=== PATIENT | male | born 1975 | race Caucasian/White ===

== ENCOUNTER → 2021-05-22 16:39 | Outpatient (CLI) | payer OTHER, SELFPAY ==
--- NOTE | ~2021-05-22 | MR_ITS ---
EXAMINATION: MR ankle RT wo con DATE: 05/22/2021 17:27 INDICATION: Peroneal tendinopathy. Plantar right ankle pain. TECHNIQUE: Magnetic resonance imaging (MRI) of the right ankle was performed without intravenous cont rast. Sequences included sagittal PD-weighted FS FSE, sagittal PD-weighted FSE, coronal PD-weighted F S FSE, coronal PD-weighted FSE, axial PD-weighted FS FSE, and axial PD-weighted FSE. COMPARISON: None. FINDINGS: Medial ankle ligaments: The superficial and deep components of the deltoid ligament are normal. Lateral ankle ligaments: There is an old avulsion fracture of anteroinferior tip of distal fibula at the attachment of the ant erior talofibular ligament. Anterior talofibular ligament demonstrates increased signal intensity, co nsistent with changes of old sprain. Calcaneofibular ligament is normal. There is a partial tear of p osterior talofibular ligament with 8 mm synovial cyst. The anterior tibiofibular ligament is indistin ct with increased signal intensity, consistent with changes of prior sprain. Posterior tibiofibular l igament is normal. Tendons: There is a longitudinal split tear of peroneus brevis tendon. There is mild peroneus longus tendinopa thy. The anterior and medial ankle tendons are normal. There is mild Achilles tendinopathy. Plantar fascia: There is thickening and increased signal in central band of plantar fascia. There is an enthesophyte at the calcaneal attachment with edema-like marrow signal intensity. Bones/other: Bone alignment is normal. The talar dome is normal. Fluid: There is no joint effusion. IMPRESSION: 1. Longitudinal split tear of peroneus brevis tendon. 2. Mild tendinopathy of peroneus longus tendon. 3. Old avulsion fracture of anteroinferior tip of distal fibula at the attachment of anterior talofib ular ligament. Changes of old lateral ankle sprain. 4. Plantar fasciitis. Reviewed, dictated and finalized at location A. [employer] IMPRESSION: 1. Longitudinal split tear of peroneus brevis tendon. 2. Mild tendinopathy of peroneus longus tendon. 3. Old avulsion fracture of anteroinferior tip of distal fibula at the attachme nt of anterior talofibular ligament. Changes of old lateral ankle sprain. 4. Plantar fasciitis.
== END ==
PROVIDERS: Visit Provider Podiatrist Foot & Ankle Surgery
DX: M76.71 Peroneal tendinitis, right leg (principal); M76.72 Peroneal tendinitis, left leg; M72.2 Plantar fascial fibromatosis
CPT/HCPCS: 73721

== ENCOUNTER 2022-05-22 08:09 | Emergency (ER) | payer OTHER, SELFPAY ==
--- NOTE | 2022-05-22 08:15 | ED.GENADULT ---
HPI - General Adult General Chief complaint: Upper Respiratory Infection Stated complaint: nasal congestion,headache Time Seen by Provider: 05/22/22 08:15 Source: patient Mode of arrival: ambulatory Limitations: no limitations History of Present Illness HPI narrative: 47-year-old male patient presents to the [facility] with complaints of nasal congestion, headache for the past 2-3 days. Patient states he has been taking [id number] Sudafed and Flonase but states that really has not helped much. Patient denies fevers, body aches or chills. Denies any coughing, chest pain or shortness of breath. Denies any abdominal pain, nausea, vomiting or diarrhea. Related Data Allergies Allergy/AdvReac Type Severity Reaction Status Date / Time No Known Allergies Allergy Verified 05/22/22 08:29 Review of Systems Review of Systems: CONSTITUTIONAL: Denies fever, chills, or sweats. EYES: Denies visual changes, redness, or discharge. ENT: Positiverhinorrhea, congestion, deniessore throat, or otalgia. CARDIOVASCULAR: Denies chest pain, palpitations, or edema. RESPIRATORY: Denies cough or dyspnea. GASTROINTESTINAL: Denies abdominal pain, nausea, vomiting, or diarrhea. GENITOURINARY: Denies dysuria or hematuria. SKIN: Denies rash or itching. MUSCULOSKELETAL: Denies back pain, joint pain, or myalgia. NEUROLOGIC: positive headache, denies numbness, or weakness. PSYCHIATRIC: Denies anxiety or depression. [facility] Past Medical History Medical History (Updated 05/22/22 @ 08:52 by HANNA Jorgensen) No significant past medical history Comments At the time of my signature I agree with nursing past medical history, surgical, social, and family history. There is no relevant family history pertinent to the presenting complaint. Exam Narrative: GENERAL: Well-appearing, well-nourished, and in no acute distress. HEAD: Normocephalic, atraumatic. slight tenderness noted to palpation of frontal sinuses EYES: PERRLA and EOMI. ENT: Nares clear, no rhinorrhea or epistaxis. Mucous membranes moist. posterior pharynx with no erythema, tonsillar edema, exudates or lesions present. NECK: Supple. No lymphadenopathy CHEST: Clear to auscultation. No respiratory distress. HEART: Regular rate and rhythm. No murmur heard. Normal peripheral pulses. ABDOMEN: Soft, nontender, nondistended, normal active bowel sounds. EXTREMITIES: Normal range of motion. No edema. SKIN: Warm, dry, no rash. NEURO: No focal deficits. Alert and oriented x3. Course Course Level of Care: Express Care Visit Vital Signs Vital signs: Vital Signs Temperature 36.8 C 05/22/22 08:27 Pulse Rate 85 05/22/22 08:27 Respiratory Rate 18 05/22/22 08:27 Blood Pressure 142/88 H 05/22/22 08:27 Pulse Oximetry 98 05/22/22 08:27 Oxygen Delivery Room Air 05/22/22 08:27 Temperature 36.8 C 05/22/22 08:27 Pulse Rate 85 05/22/22 08:27 Respiratory Rate 18 05/22/22 08:27 Blood Pressure 142/88 H 05/22/22 08:27 Pulse Oximetry 98 05/22/22 08:27 Oxygen Delivery Room Air 05/22/22 08:27 Vital signs reviewed. The patient has been informed that they may have pre-hypertension or Hypertension based on a BP reading in the department. I recommend that the patient call the primary care provider listed on their discharge instructions or a physician of their choice this week to arrange follow up for further evaluation of possible pre-hypertension or Hypertension Medical Decision Making MDM Narrative Medical decision making narrative: Discussed with patient that most likely he has sinusitis that is viral not bacterial. Discussed with patient we will discharge him home a 5 day course of an oral steroid and encouraged him to continue doing his Flonase as well as taking a 24 hour antihistamine such as Zyrtec, Jocelynn Claritin. Patient verbalized understanding denies any other questions or concerns at this time. Differential Diagnosis Differential Diagnosis: Diffe
[2022-05-22 08:27] VITALS: BP 142/88; PULSE 85; RESP 18; TEMP 36.8; O2SAT 98
== END 2022-05-22 08:50 | disposition home or self-care (01) ==
PROVIDERS: Emergency Provider Nurse Practitioner Family; PCP Physician Assistant
DX: J32.9 Chronic sinusitis, unspecified (principal)
CPT/HCPCS: 99213; G0463

== ENCOUNTER 2023-12-31 09:24 | Emergency (ER) | payer OTHER, SELFPAY ==
[2023-12-31 09:33] VITALS: BP 150/96; PULSE 76; RESP 19; TEMP 36.8; O2SAT 100
--- NOTE | 2023-12-31 09:33 | ED.GENADULT ---
HPI - General Adult General Chief complaint: Dizziness Stated complaint: Dizziness/High BP Time Seen by Provider: 12/31/23 10:07 Source: patient Mode of arrival: ambulatory Limitations: no limitations History of Present Illness HPI narrative: 48-year-old male presents with concern for dizziness. Reports he woke up this morning and when he would turn his head or moves he would have room spinning dizziness. He reports he took his blood pressure and it was higher than usual. Reports at home it was 140s over 100. He does not have a history of hypertension. He denies headache, vision changes, weakness in any extremity, slurred speech. He reports a history of vertigo Related Data Home Medications Medication Instructions Recorded Confirmed metoprolol succinate 25 mg 25 mg PO DAILY 12/31/23 12/31/23 tablet,extended release 24 hr Allergies Allergy/AdvReac Type Severity Reaction Status Date / Time No Known Allergies Allergy Verified 12/31/23 09:32 Review of Systems Review of Systems: CONSTITUTIONAL: Denies malaise, chills, sweats, or fever. EYES: Denies visual changes ENT: Denies rhinorrhea, congestion, sinus pain, otalgia or sore throat. CARDIOVASCULAR: Denies chest pain, palpitations, or edema. RESPIRATORY: Denies cough or dyspnea. GASTROINTESTINAL: Denies nausea, vomiting MUSCULOSKELETAL: Denies myalgia. NEUROLOGIC: Denies numbness, weakness, or headache. Reports dizziness All systems reviewed & are unremarkable except as noted in HPI and below PMFSH Past Medical History Medical History (Updated 12/31/23 @ 10:19 by Asmita Judd NP) No significant past medical history Comments At time of signature, agree with nursing past medical, surgical, social and family history. There is no relevant family history pertinent to the presenting complaint Exam Narrative: GENERAL: Well-appearing, well-nourished, and in no acute distress. HEAD: Normocephalic, atraumatic. EYES: PERRLA, sclera clear, and EOMI. No nystagmus. ENT: Nares clear. Mucous membranes moist. TM pearly shah with sharp light reflex bilaterally; no tragal tenderness. Oropharynx without erythema or lesions. Tonsils not enlarged and without exudate. NECK: Supple. No lymphadenopathy. CHEST: No respiratory distress. Clear to auscultation. No bony deformities, no asymmetry. Speaks in full sentences. HEART: Regular rate and rhythm. No murmur heard. Normal peripheral pulses. EXTREMITIES: Normal range of motion. No edema. Normal strength and sensation. SKIN: Warm, dry, no visible rash. NEURO: Alert and oriented x3. No focal deficits. Cranial nerves II through XII grossly intact PSYCH: Normal mood and affect Course Course Emergency Course: Patient is aware of diagnosis, understands and agrees to treatment plan. Anticipatory guidance given. Patient agrees to follow-up as directed and is aware of reasons to seek care at the emergency department. Portions of this record may have been created with voice recognition software Level of Care: Express Care Visit Vital Signs Vital signs: Vital Signs Temperature 98.3 F 12/31/23 09:33 Pulse Rate 76 12/31/23 09:33 Respiratory Rate 19 12/31/23 09:33 Blood Pressure 150/96 H 12/31/23 09:33 Pulse Oximetry 100 12/31/23 09:33 Oxygen Delivery Room Air 12/31/23 09:33 Temperature 98.3 F 12/31/23 09:33 Pulse Rate 76 12/31/23 09:33 Respiratory Rate 19 12/31/23 09:33 Blood Pressure 140/95 H 12/31/23 10:30 Pulse Oximetry 100 12/31/23 09:33 Oxygen Delivery Room Air 12/31/23 09:33 Reviewed. Medical Decision Making MDM Narrative Medical decision making narrative: Patients vertigo is felt to be likely peripheral in origin. there is no diplopia, dysarthria, or dyshphagia. Patients gait is stable and there are no focal neurological deficits on exam. Risk for central causes has been reviewed. Patient felt likely reasonable for continued outpatient management and risks are fe
[2023-12-31 10:20] VITALS: BP 140/95
[2023-12-31 10:30] VITALS: BP 140/95
== END 2023-12-31 10:30 | disposition home or self-care (01) ==
PROVIDERS: Emergency Provider Nurse Practitioner; PCP Physician Assistant
DX: R42 Dizziness and giddiness (principal); Z79.899 Other long term (current) drug therapy
CPT/HCPCS: 99213; G0463